=== PATIENT | male | born 1995 | race Caucasian/White ===

== ENCOUNTER → 2021-07-26 16:27 | Outpatient (BNVA) | payer OTHER, SELFPAY | PROVIDERS: Family Provider Family Medicine; PCP Family Medicine; Visit Provider Nurse Practitioner Family | DX: Z20.822 Contact with and (suspected) exposure to COVID-19 (principal) | CPT/HCPCS: 87635 ==

== ENCOUNTER → 2021-10-19 12:31 | Outpatient (BNVA) | payer OTHER, SELFPAY | PROVIDERS: Family Provider Family Medicine; PCP Family Medicine; Visit Provider Nurse Practitioner Family | DX: Z20.822 Contact with and (suspected) exposure to COVID-19 (principal) | CPT/HCPCS: 87635 ==

== ENCOUNTER 2022-01-20 10:23 | Emergency (ER) | payer OTHER, SELFPAY ==
[2022-01-20 10:54] VITALS: BP 111/45; PULSE 48; RESP 20; O2SAT 100; BMI 19.8
--- NOTE | 2022-01-20 11:00 | W.ED.BACK ---
HPI - Back Pain/Injury General: Chief Complaint: Back Pain/Injury Stated Complaint: abd pain Time Seen by Provider: 01/20/22 11:00 History of Present Illness: Mr. Michael is a 26-year-old gentleman without significant past medical history presents to the emergency department due to severe flank pain. He reports being at his baseline health the past few days and had sudden onset of symptoms while he was stretching in bed this morning. He endorses feeling a pop end and having right flank pain with radiation to his stomach. Intensity symptoms is severe. Sharp cramping quality. Radiates to abdomen. No testicular pain. Patient has difficulty staying still. Denies similar episodes in the past. No other specific changes in health, exacerbating, or alleviating factors identified. Onset (ago): minute(s) Severity: severe Similar Symptoms Previously: No Location: right flank and right lower back Radiation: abdomen and groin Relieving factors: none Review of Systems General: Reports: 10 or more systems reviewed and unremarkable except in HPI and below PFSH ED PFSH: Medical History No significant past medical history Surgical History No significant past surgical history Physical Exam Const: COMMON NORMALS: alert GENERAL APPEARANCE: cooperative, well developed and in distress (pain) HENMT: COMMON NORMALS: normocephalic and atraumatic HEAD & SCALP: normocephalic and atraumatic Eye: COMMON NORMALS: conjunctivae normal CONJUNCTIVA: Yes conjunctivae normal SCLERA: sclerae normal Neck/C-Spine: COMMON NORMALS: supple GENERAL: Yes trachea midline Resp: COMMON NORMALS: normal respiratory effort EFFORT & INSPECTION: Yes able to speak in complete sentences Cardio: COMMON NORMALS: regular rate and regular rhythm RATE: regular rate RHYTHM: regular rhythm GI: COMMON NORMALS: Soft to palpation PALPATION: Yes Soft to palpation, Yes Tenderness to palpation present (GI), No Guarding due to palpation present (GI) and No Rigid due to palpation PERCUSSION: normal to percussion Extremity: GENERAL: Yes normal exam except as noted and No edema Neuro: COMMON NORMALS: moves all extremities SENSORIUM/ORIENTATION: Yes alert and No Orientation impaired Psych: COMMON NORMALS: mental status grossly normal and Normal thought process present THOUGHT PROCESS: Normal thought process present Course ED course: - Patient was seen and evaluated by me at bedside - Patient placed on cardiac monitors, IV access obtained - Initial evaluation notable for exam as above, distress due to pain - Labs personally interpreted by me. EKG showing sinus bradycardia with no STEMI. Bradycardia likely due to vagal pain response. -Symptom treatment ordered - Labs notable for no acute hematologic adenopathy, no acute metabolic abnormality. Urinalysis today significant of time to obtain however not concerning for urinary tract infection given negative nitrites and no bacteria identified. Mild dysuria present. - Imaging notable for UVJ stone 3 mm approximately - Upon serial reexamination after treatment the patient was improved after treatment - Based on patient history, evaluation, and testing as interpreted the most likely cause of the patient's condition is ureteral lithiasis. Given location and size as well as improvement in pain with symptom treatment and no evidence of infected kidney stone patient can reasonably be treated in the outpatient environment With strict return precautions given. - The results of ED evaluation were discussed with the patient including prescriptions and/or symptomatic cares (if applicable) including appropriate and responsible use, followup plan, and return precautions. The patient verbalized understanding and felt safe for discharge. - Patient discharged in satisfactory condition. Note: Click bubbles or prepopulated oconnell in note writing are used for assistance with data collection and billing and are inherently more limited than narrative and other text portions of this note. Please use narrative for additional clinical history and defer to narrative/free test for any case of contradictory information. If information appears in only free text or click bubble it should be considered present or absent as reported. Please contact note senior technical writer for clarifications of clinical information or contradictory information. MDM is a brief summary, contradictory or erroneous seeming information should be clarified and full note should be reviewed. Vital Signs: Vital signs: Vital Signs Pulse Rate 73 01/20/22 17:40 Respiratory Rate 18 01/20/22 17:40 Blood Pressure 116/78 01/20/22 17:40 Pulse Oximetry 99 01/20/22 17:40 MDM - Back Pain/Injury Medical Decision Making 26-year-old male presenting with severe back pain found to have 3 mm UVJ ureterolithiasis. Improved with symptom treatment. Satisfactory for outpatient management. Medical Records I reviewed the patient's medical records. Labs I reviewed the patient's lab results. : 01/20/22 11:05 01/20/22 11:05 Radiology Impressions Abdomen/Pelvis CT 01/20/22 11:49 IMPRESSION: 1. Mild RIGHT hydroureteronephrosis secondary to a 3 mm calcification at the UV junction. 2. Additional bilateral nonobstructing renal calculi. 3. Normal appendix. Laboratory Results WBC 8.4 10^3/uL (4.0-10.0) 01/20/22 11:05 RBC 5.25 10^6/uL (4.1-5.3) 01/20/22 11:05 Hgb 15.8 g/dL (11.7-16.6) 01/20/22 11:05 Hct 46.5 % (42.0-52.0) 01/20/22 11:05 MCV 88.6 fl (80-94) 01/20/22 11:05 MCH 30.1 pg (28.0-34.0) 01/20/22 11:05 MCHC 34.0 g/dL (30.0-36.0) 01/20/22 11:05 RDW 12.4 % (12.1-15.1) 01/20/22 11:05 Plt Count 247 10^3/cmm (130-400) 01/20/22 11:05 MPV 10.0 fL (7.4-10.4) 01/20/22 11:05 Neut % (Auto) 51.0 % 01/20/22 11:05 Lymph % (Auto) 39.4 % 01/20/22 11:05 [place] % (Auto) 6.7 % 01/20/22 11:05 Eos % (Auto) 2.2 % 01/20/22 11:05 Baso % (Auto) 0.5 % 01/20/22 11:05 Neut # (Auto) 4.27 10^3/uL (1.8-7.7) 01/20/22 11:05 Lymph # (Auto) 3.3 10^3/uL (0.8-4.8) 01/20/22 11:05 [place] # (Auto) 0.6 10^3/uL (0.2-0.9) 01/20/22 11:05 Eos # (Auto) 0.2 10^3/uL (0.0-0.8) 01/20/22 11:05 Baso # (Auto) 0.0 10^3/uL (0.0-0.1) 01/20/22 11:05 Nucleated RBC % (auto) 0 % 01/20/22 11:05 Nucleated RBCs # 0.0 /100WBC 01/20/22 11:05 Sodium 137 mmol/L (136-145) 01/20/22 11:05 Potassium 3.8 mmol/L (3.5-5.1) 01/20/22 11:05 Chloride 101 mmol/L (98-107) 01/20/22 11:05 Carbon Dioxide 26 mmol/L (22-29) 01/20/22 11:05 Anion Gap 13.8 (5-19) 01/20/22 11:05 BUN 13 mg/dL (6-20) 01/20/22 11:05 Creatinine 0.9 mg/dL (0.7-1.2) 01/20/22 11:05 GFR Calculation 100.5 mL/min (90-130) 01/20/22 11:05 Glucose 120 mg/dL (65-115) H 01/20/22 11:05 Calculated Osmolality 285 mOsm/kg (285-295) 01/20/22 11:05 Calcium 9.5 mg/dL (8.5-10.5) 01/20/22 11:05 Total Bilirubin 0.8 mg/dL (0.15-1.2) 01/20/22 11:05 AST 15 U/L (0-40) 01/20/22 11:05 ALT 13 U/L (0-41) 01/20/22 11:05 Alkaline Phosphatase 85 IU/L (40-130) 01/20/22 11:05 Total Protein 8.3 g/dL (6.6-8.7) 01/20/22 11:05 Albumin 5.2 g/dL (3.5-5.2) 01/20/22 11:05 Globulin 3.1 g/dL (1.3-4.6) 01/20/22 11:05 Lipase 15 U/L (13-60) 01/20/22 11:05 Urine Color Yellow (Yellow) 01/20/22 16:30 Urine Appearance Hazy (CLEAR) A 01/20/22 16:30 Urine pH 5 (5-7) 01/20/22 16:30 Ur Specific [place] 1.030 (1.005-1.030) 01/20/22 16:30 Urine Protein Neg (Negative) 01/20/22 16:30 Urine Glucose (UA) Norm (Normal) 01/20/22 16:30 Urine Ketones 1+ (Negative) H 01/20/22 16:30 Urine Blood 3+ (Negative) H 01/20/22 16:30 Urine Nitrate Negative (Negative) 01/20/22 16:30 Urine Bilirubin Neg (Negative) 01/20/22 16:30 Urine Urobilinogen Norm mg/dL (Negative) 01/20/22 16:30 Ur Leukocyte Esterase Negative (Negative) 01/20/22 16:30 Urine RBC 10-15 /hpf (0-2) H 01/20/22 16:30 Urine WBC 10-15 /hpf (0-5) H 01/20/22 16:30 Ur Squamous Epith Cells 0-4 /hpf (0-5) H 01/20/22 16:30 Amorphous Sediment 2+ /hpf 01/20/22 16:30 Urine Bacteria None /hpf (NONE) 01/20/22 16:30 Hyaline Casts 0-4 /lpf H 01/20/22 16:30 Fine Granular Casts 0-4 /lpf H 01/20/22 16:30 Coarse Granular Casts 0-4 /lpf H 01/20/22 16:30 RBC Casts None /lpf 01/20/22 16:30 Other Casts N /lpf 01/20/22 16:30 Urine Mucus 1+ /hpf 01/20/22 16:30 Urine Sperm 1+ /hpf 01/20/22 16:30 Discharge Plan Discharge Patient Disposition: Home Clinical Impression: Kidney stone Condition: Stable Prescriptions: New ondansetron 4 mg tablet,disintegrating 4 mg PO Q8H PRN (Reason: nausea and vomiting) Qty: 15 0RF oxycodone 5 mg tablet 5 mg PO Q4H PRN (Reason: pain) Qty: 10 0RF Flomax 0.4 mg capsule 0.4 mg PO DAILY Qty: 14 0RF Discharge Orders: Discharge ED (Routine); Ordered 01/20/22 Ordered By: Jonathan Reed Discharge Diet: Usual diet Discharge Activity: Increase activity as tolerated Patient Instructions: Kidney Stones (ED), How to Strain Your Urine (ED), Opioid Safety Activity Restrictions/Additional Instructions: Thank you for visiting the emergency department. You were seen and evaluated for back and side pain. You are found to have a kidney stone measuring 3 mm in the ureter at the junction with the bladder. This, given location and size, will most likely pass on its own. You will be sent home with prescription for pain medication, nausea medication, and a medication to help with passage of the stone. Additionally, please strain your urine. I would expect improvement in symptoms in the next few days however if symptoms continue please follow-up with your primary care provider for reassessment of stone position. You may use Tylenol and ibuprofen in addition to the prescription medications. Please do not exceed the daily recommended dosage and please ensure that you are staying hydrated. Opiates can cause sedation, do not combine with other sedating medications or substances, do not drive or operate machinery while under the influence of medication, do not otherwise perform tasks that would be dangerous with potential impairment. Other common side effect includes constipation, you may use [id number] stool softeners. Please return to the emergency department for uncontrolled symptoms, symptoms of urinary tract infection, or anything else that you are concerned about a feel needs emergency department evaluation. Coding Level of Care Code ED Publications Sales Representative for Sathya Quiroz Exam Comprehensive
--- NOTE | 2022-01-20 11:20 | ECG_ITS ---
[facility] Test Date: 2022-01-20 Pat Name: Severiano Michael Department: Room: Gender: Male Loss Prevention Coordinator: : 1995 Requested By: Jonathan Reed Order Number: [id number] [place] MD: Can Cheek M.D. Measurements Intervals [place] Rate: 45 P: 55 WA: 97 QRS: 83 QRSD: 101 T: 67 QT: 415 QTc: 362 Interpretive Statements SINUS BRADYCARDIA WITH SHORT WA INTERVAL POSSIBLE RIGHT VENTRICULAR CONDUCTION DELAY [RSR (QR) IN V1/V2] POSSIBLE LEFT VENTRICULAR HYPERTROPHY [VOLTAGE CRITERIA PLUS LAE OR QRS WIDENING] MINIMAL ST DEPRESSION [0.025+ mV ST DEPRESSION] No previous ECG available for comparison Electronically Signed On 01-20-2022 20:42:09 CDT by Can Cheek M.D. [email or web address]
[2022-01-20 11:21] LABS: Basophils % 0.5 %; Eosinophils # 0.2 10^3/uL (0.0-0.8); Eosinophils % 2.2 %; Hematocrit 46.5 % (42.0-52.0); Hemoglobin 15.8 g/dL (11.7-16.6); Lymphocytes # 3.3 10^3/uL (0.8-4.8); Lymphocytes % 39.4 %; Mean Corpuscular Hemoglobin 30.1 pg (28.0-34.0); Mean Corpuscular Volume 88.6 fl (80-94); Monocytes # 0.6 10^3/uL (0.2-0.9); Monocytes % 6.7 %; Neutrophils # 4.27 10^3/uL (1.8-7.7); Nucleated Red Blood Cells % 0 %; Platelet Count 247 10^3/cmm (130-400); Red Blood Count 5.25 10^6/uL (4.1-5.3); Red Cell Distribution Width 12.4 % (12.1-15.1); White Blood Count 8.4 10^3/uL (4.0-10.0)
[2022-01-20 11:29] VITALS: RESP 12; O2SAT 94
[2022-01-20] MEDS: fentaNYL 50 mcg/mL INJ 2mL IVP (11:29)
[2022-01-20] MEDS: ondansetron 2 mg/ML SDV 2 mL 4 MG IVP (11:29)
[2022-01-20] MEDS: lactated ringers 1,000 ML 999 ML IV (11:30)
[2022-01-20 11:48] LABS: Alanine Aminotransferase 13 U/L (0-41); Albumin Level 5.2 g/dL (3.5-5.2); Alkaline Phosphatase 85 IU/L (40-130); Anion Gap 13.8 (5-19); Aspartate Amino Transferase 15 U/L (0-40); Blood Urea Nitrogen 13 mg/dL (6-20); Calcium 9.5 mg/dL (8.5-10.5); Carbon Dioxide 26 mmol/L (22-29); Chloride 101 mmol/L (98-107); Globulin 3.1 g/dL (1.3-4.6); Glomerular Filtration Rate 100.5 mL/min (90-130); Glucose 120 mg/dL (65-115); Lipase 15 U/L (13-60); Osmolality Calculated 285 mOsm/kg (285-295); Potassium 3.8 mmol/L (3.5-5.1); Sodium 137 mmol/L (136-145); Total Bilirubin 0.8 mg/dL (0.15-1.2); Total Protein 8.3 g/dL (6.6-8.7)
--- NOTE | 2022-01-20 11:49 | CT_ITS ---
WS: [id number] CT ABDOMEN AND PELVIS NONCONTRAST HISTORY: r flank pain, ? stone TECHNIQUE: Imaging performed through the abdomen and pelvis. Coronal and sagittal reformats are submi tted. All CT scans at [facility] use at least one of these dose optimization techniques: auto mated exposure control; mA and/or kV adjustment per patient size (includes targeted exams where dose is matched to clinical indication); or iterative reconstruction. DLP: 665.38 mGy.cm COMPARISON: 02/28/2016 Lower thorax: Lung bases are clear. Visualized heart is normal. No hiatal hernia. Liver: Normal size liver. No mass or bile duct dilatation. Gallbladder: Normal gallbladder. Pancreas: Normal size and attenuation. Normal pancreatic duct. No pancreatitis or mass. Spleen: Normal. Adrenal glands: Normal. No mass. Right kidney: RIGHT kidney is enlarged and edematous with mild perinephric stranding. There is very m inimal dilatation of the renal pelvis and mild inflammatory changes involving the pelvis and proximal ureter. 3 mm calcification at the UV junction. There are additional very small calcifications in the renal pelvis not causing obstruction. Left kidney: Normal size kidney with several small nonobstructing calcifications in the renal pelvis. The largest calcification measures 4 mm. Normal size ureter. Aorta: Normal abdominal aorta, no aneurysm or atherosclerosis. No free fluid, intraperitoneal air or significant lymphadenopathy. GI tract: Normal appendix. No GI tract obstruction or diverticulosis. Abdominal wall: Negative. No hernia. Pelvis: Minimally distended urinary bladder. No free fluid or adenopathy in the pelvis. Osseous structures: Unremarkable. CT/CT kidney stone [id number] IMPRESSION: 1. Mild RIGHT hydroureteronephrosis secondary to a 3 mm calcification at the U V junction. 2. Additional bilateral nonobstructing renal calculi. 3. Normal appendix.
[2022-01-20 11:50] VITALS: RESP 12; O2SAT 99
[2022-01-20] MEDS: morphine 4 mg/mL SDV 1 mL IVP (11:50)
[2022-01-20 12:40] VITALS: RESP 12; O2SAT 99
[2022-01-20] MEDS: HYDROmorphone 1 mg/mL INJ 1 mL 0.5 MG IVP (12:40)
[2022-01-20] MEDS: ketorolac 30 mg/mL INJ 15 MG IVP (14:00)
[2022-01-20 14:31] VITALS: BP 128/78; PULSE 47; RESP 12; O2SAT 99
[2022-01-20] MEDS: sodium chloride 0.9% 1,000 ML 999 ML IV (14:53)
[2022-01-20] MEDS: tamsulosin 0.4 mg Capsule PO (14:53)
[2022-01-20] MEDS: lidocaine 2% Urojet 20 mL TOPICAL (16:31)
[2022-01-20 16:45] LABS: Bilirubin Urine Neg (Negative); Blood Urine 3+ (Negative); Glucose Urine UA Norm (Normal); Ketones Urine 1+ (Negative); Nitrate Urine Negative (Negative); Protein Urine Neg (Negative); Urine Appearance Hazy (CLEAR); Urine Color Yellow (Yellow); pH Urine 5 (5-7)
[2022-01-20 16:46] LABS: Add Urine Microscopic? YES; Leukocyte Esterase Urine Negative (Negative); Urobilinogen Urine Norm (Negative)
[2022-01-20 17:10] LABS: Squamous Epithelial Cell Urine 0-4 /hpf (0-5)
[2022-01-20 17:11] LABS: Amorphous Sediment Urine 2+ /hpf; Coarse Granular Casts Urine 0-4 /lpf; Fine Granular Casts Urine 0-4 /lpf; Hyaline Casts Urine 0-4 /lpf; Mucus Urine 1+ /hpf; Other Casts Urine N /lpf
[2022-01-20 17:12] LABS: Add Urine Culture? Yes; Sperm Urine 1+ /hpf
[2022-01-20 17:40] VITALS: BP 116/78; PULSE 73; RESP 18; O2SAT 99
== END 2022-01-20 17:43 | disposition home or self-care (01) ==
PROVIDERS: Physician Assistant; Emergency Provider Emergency Medicine
DX: N20.0 Calculus of kidney (principal)
CPT/HCPCS: 74176; 80053; 81001; 83690; 85025; 87086; 93005; 96361; 96374; 96375; 99284; J1170; J1885; J2270; J2405; J3010; J7030

== ENCOUNTER 2022-05-31 04:30 | Emergency (ER) | payer OTHER, SELFPAY ==
[2022-05-31 04:46] VITALS: BP 132/84; PULSE 68; RESP 16; TEMP 37.2; O2SAT 96; BMI 19.8
--- NOTE | 2022-05-31 04:51 | W.ED.BACK ---
HPI - Back Pain/Injury General: Chief Complaint: Back Pain/Injury Stated Complaint: Lower Back Pain Time Seen by Provider: 05/31/22 04:51 History of Present Illness: 26-year-old male presents with left lower back pain. He reports it started a couple days ago got worse. He had some nausea and vomiting. The pain comes and goes. Patient has had a prior kidney stone. Patient reports that he took a leftover oxycodone to help with the pain. He is not currently nauseated. No reports of fever chills or dysuria. He has not noticed any blood in his urine. Associated symptoms: Reports abdominal pain and nausea; Deny chills, dysuria, fever(s) or vomiting Review of Systems Const: Denies: fever(s) or chills Eyes: Denies: change in vision or blurry vision Card: Denies: chest pain or palpitations Resp: Denies: dyspnea or productive cough GI: Reports: abdominal pain and nausea; Denies: vomiting : Reports: flank pain; Denies: dysuria or urinary frequency Musc: Denies: neck pain or back pain Skin/Breast: Denies: rash or pruritus Neuro: Denies: headache(s) or dizziness Psych: Denies: anxiety or depression PFSH ED PFSH: Medical History No significant past medical history Surgical History No significant past surgical history Physical Exam Const: COMMON NORMALS: average body habitus and patient oriented x3 HENMT: COMMON NORMALS: hearing grossly normal bilaterally and moist oral mucous membranes Resp: COMMON NORMALS: normal respiratory effort, No use of accessory muscles and clear to auscultation bilaterally AUSCULTATION: clear to auscultation bilaterally Cardio: COMMON NORMALS: regular rate and regular rhythm RATE: regular rate RHYTHM: regular rhythm GI: COMMON NORMALS: Soft to palpation PALPATION: Yes Soft to palpation and Yes Tenderness to palpation present (GI) (Mild suprapubic) : BLADDER/KIDNEY EXAM: Yes CVA tenderness on the left (Mild) Back/Pelvis: GENERAL BACK: Yes CVA tenderness Extremity: COMMON NORMALS: normal to inspection, full ROM and capillary refill normal Neuro: COMMON NORMALS: patient oriented x3, moves all extremities and no focal motor deficits Psych: COMMON NORMALS: mental status grossly normal, cooperative and normal affect Skin: COMMON NORMALS: no rashes or lesions noted GENERAL SKIN EXAM: no rashes or lesions noted Course Vital Signs: Vital signs: Vital Signs Temperature 98.9 F 05/31/22 04:46 Pulse Rate 61 05/31/22 07:14 Respiratory Rate 16 05/31/22 07:14 Blood Pressure 114/61 05/31/22 07:14 Pulse Oximetry 96 05/31/22 07:14 Oxygen Delivery Me thod 05/31/22 06:05 MDM - Back Pain/Injury Medical Decision Making Patient with left distal ureter stone. We will start him on pain medication, nausea medication, Flomax and have him follow-up with urology. Patient was stable and discharged home Labs : 05/31/22 04:49 05/31/22 04:49 Radiology Impressions Abdomen/Pelvis CT 05/31/22 04:58 IMPRESSION: 1. [id number] left hydronephrosis and ureterectasis with a left ureterovesicular junction 2 x 3 x 2 mm calculus (series 4, image 188 and series 6, image 62)-at the level of the hip joint. 2. Tiny bilateral intrarenal calculi. No right hydronephrosis or ureterectasis. 3. Nonspecific unchanged mild splenomegaly. Laboratory Results WBC 11.1 10^3/uL (4.0-10.0) H 05/31/22 04:49 RBC 4.79 10^6/uL (4.1-5.3) 05/31/22 04:49 Hgb 14.5 g/dL (11.7-16.6) 05/31/22 04:49 Hct 42.3 % (42.0-52.0) 05/31/22 04:49 MCV 88.3 fl (80-94) 05/31/22 04:49 MCH 30.3 pg (28.0-34.0) 05/31/22 04:49 MCHC 34.3 g/dL (30.0-36.0) 05/31/22 04:49 RDW 12.4 % (12.1-15.1) 05/31/22 04:49 Plt Count 200 10^3/cmm (130-400) 05/31/22 04:49 MPV 10.0 fL (7.4-10.4) 05/31/22 04:49 Neut % (Auto) 70.1 % 05/31/22 04:49 Lymph % (Auto) 20.1 % 05/31/22 04:49 [place] % (Auto) 8.4 % 05/31/22 04:49 Eos % (Auto) 0.8 % 05/31/22 04:49 Baso % (Auto) 0.2 % 05/31/22 04:49 Neut # (Auto) 7.80 10^3/uL (1.8-7.7) H 05/31/22 04:49 Lymph # (Auto) 2.2 10^3/uL (0.8-4.8) 05/31/22 04:49 [place] # (Auto) 0.9 10^3/uL (0.2-0.9) 05/31/22 04:49 Eos # (Auto) 0.1 10^3/uL (0.0-0.8) 05/31/22 04:49 Baso # (Auto) 0.0 10^3/uL (0.0-0.1) 05/31/22 04:49 Nucleated RBC % (auto) 0 % 05/31/22 04:49 Nucleated RBCs # 0.0 /100WBC 05/31/22 04:49 Sodium 137 mmol/L (136-145) 05/31/22 04:49 Potassium 4.0 mmol/L (3.5-5.1) 05/31/22 04:49 Chloride 99 mmol/L (98-107) 05/31/22 04:49 Carbon Dioxide 26 mmol/L (22-29) 05/31/22 04:49 Anion Gap 16.0 (5-19) 05/31/22 04:49 BUN 10 mg/dL (6-20) 05/31/22 04:49 Creatinine 1.5 mg/dL (0.7-1.2) H 05/31/22 04:49 GFR Calculation 55.7 mL/min (90-130) L 05/31/22 04:49 Glucose 104 mg/dL (65-115) 05/31/22 04:49 Calculated Osmolality 283 mOsm/kg (285-295) L 05/31/22 04:49 Calcium 9.3 mg/dL (8.5-10.5) 05/31/22 04:49 Total Bilirubin 1.0 mg/dL (0.15-1.2) 05/31/22 04:49 AST 14 U/L (0-40) 05/31/22 04:49 ALT 12 U/L (0-41) 05/31/22 04:49 Alkaline Phosphatase 82 U/L (40-130) 05/31/22 04:49 Total Protein 7.9 g/dL (6.6-8.7) 05/31/22 04:49 Albumin 4.6 g/dL (3.5-5.2) 05/31/22 04:49 Globulin 3.3 g/dL (1.3-4.6) 05/31/22 04:49 Urine Color Yellow (Yellow) 05/31/22 06:13 Urine Appearance Clear (CLEAR) 05/31/22 06:13 Urine pH 6.5 (5-7) 05/31/22 06:13 Ur Specific [place] 1.010 (1.005-1.030) 05/31/22 06:13 Urine Protein Neg (Negative) 05/31/22 06:13 Urine Glucose (UA) Norm (Normal) 05/31/22 06:13 Urine Ketones Negative (Negative) 05/31/22 06:13 Urine Blood Neg (Negative) 05/31/22 06:13 Urine Nitrate Negative (Negative) 05/31/22 06:13 Urine Bilirubin Neg (Negative) 05/31/22 06:13 Urine Urobilinogen Norm mg/dL (Negative) 05/31/22 06:13 Ur Leukocyte Esterase Negative (Negative) 05/31/22 06:13 Discharge Plan Discharge Patient Disposition: Home Clinical Impression: Calculus of distal left ureter Condition: Stable Prescriptions: New Flomax 0.4 mg capsule 0.4 mg PO DAILY Qty: 14 0RF hydrocodone-acetaminophen 5-325 mg tablet 1 tab PO Q8H PRN (Reason: pain) Qty: 10 0RF ondansetron 4 mg tablet,disintegrating 4 mg PO Q6H PRN (Reason: nausea and vomiting) Qty: 20 0RF No Action ondansetron 4 mg tablet,disintegrating 4 mg PO Q8H PRN (Reason: nausea and vomiting) Qty: 15 0RF oxycodone 5 mg tablet 5 mg PO Q4H PRN (Reason: pain) Qty: 10 0RF Flomax 0.4 mg capsule 0.4 mg PO DAILY Qty: 14 0RF Discharge Orders: Discharge ED (Routine); Ordered 05/31/22 Ordered By: Rogelio Woody Discharge Diet: Usual diet Discharge Activity: Resume usual activity Patient Instructions: Kidney Stones (ED), Opioid Safety, Pain Management Activity Restrictions/Additional Instructions: Follow-up with your primary care provider as needed if symptoms not improve over the next 3 to 4 days Coding Level of Care Code ED Mandarin Chinese Teacher for Chg Fwd Exam Comprehensive
--- NOTE | 2022-05-31 04:58 | CTR_ITS ---
PROCEDURE INFORMATION: Exam: CT Abdomen And Pelvis Without Contrast Exam date and time: 05/31/2022 5:08 AM Age: 26 years old Clinical indication: Abdominal pain; Patient HX: C/O left flank pain with nausea. ; Additional info: Flank pain, HX stones TECHNIQUE: Imaging protocol: Computed tomography of the abdomen and pelvis without contrast. Radiation optimization: All CT scans at this facility use at least one of these dose optimization techniques: automated exposure control; mA and/or kV adjustment per patient size (includes targeted exams where dose is matched to clinical indication); or iterative reconstruction. COMPARISON: CT kidney stone [id number] 03/07/2016 11:46 PM RADIATION DOSE METRICS: Total DLP (mGy-cm): 390.97 FINDINGS: Lungs: The visualized portions of the lung bases are normal. Liver: Appears unremarkable on the non-contrast CT. Gallbladder and bile ducts: No calcified stones. No ductal dilation. Pancreas: Appears unremarkable on the non-contrast CT. No ductal dilation. Spleen: There is unchanged mild splenomegaly noted with the spleen measuring 13.7 cm in length. The parenchyma appears unremarkable on noncontrast imaging. Adrenal glands: Normal. No mass. Kidneys and ureters: There is xwaa-[id number] left hydronephrosis and ureterectasis with a left ureterovesicular junction 2 x 3 x 2 mm calculus (series 4, image 188 and series 6, image 62)-at the level of the hip joint. Multiple bilateral kidney mid zone and lower pole and left kidney upper pole 1 mm calculi are seen (greater than 6). No contour deforming renal masses on the noncontrast CT. No right hydronephrosis, ureterectasis or ureteral calculi. Stomach and bowel: The non-contrast opacified stomach is not well distended with relative gastric fold prominence. Assessment is limited. The noncontrast opacified small bowel loops appear unremarkable. Some fluid is seen in the ascending colon and transverse colon. The remainder of the colon appears unremarkable. The lack of orally administered contrast material limits assessment. Appendix: No evidence of appendicitis. Intraperitoneal space: No free air. No significant fluid collection. Vasculature: No abdominal aortic aneurysm. Lymph nodes: No enlarged lymph nodes. Urinary bladder: No bladder debris. No wall thickening. Reproductive: Unremarkable as visualized. Bones/joints: No acute osseous abnormalities seen. Soft tissues: Tiny umbilical hernia is seen, containing peritoneal fat. CT/CT kidney stone [id number] IMPRESSION: 1. Awfi-wj-lpzpoutu left hydronephrosis and ureterectasis with a left ureterovesicular junction 2 x 3 x 2 mm calculus (series 4, image 188 and series 6, image 62)-at the level of the hip joint. 2. Tiny bilateral intrarenal calculi. No right hydronephrosis or ureterectasis. 3. Nonspecific unchanged mild splenomegaly.
[2022-05-31] MEDS: sodium chloride 0.9% 1,000 ML 999 ML IV (05:03)
[2022-05-31] MEDS: ketorolac 30 mg/mL INJ 15 MG IVP (05:03)
[2022-05-31 05:05] LABS: Basophils % 0.2 %; Eosinophils # 0.1 10^3/uL (0.0-0.8); Eosinophils % 0.8 %; Hematocrit 42.3 % (42.0-52.0); Hemoglobin 14.5 g/dL (11.7-16.6); Lymphocytes # 2.2 10^3/uL (0.8-4.8); Lymphocytes % 20.1 %; Mean Corpuscular HGB Conc 34.3 g/dL (30.0-36.0); Mean Corpuscular Hemoglobin 30.3 pg (28.0-34.0); Mean Corpuscular Volume 88.3 fl (80-94); Monocytes # 0.9 10^3/uL (0.2-0.9); Monocytes % 8.4 %; Neutrophils % 70.1 %; Nucleated Red Blood Cells % 0 %; Platelet Count 200 10^3/cmm (130-400); Red Blood Count 4.79 10^6/uL (4.1-5.3); Red Cell Distribution Width 12.4 % (12.1-15.1); White Blood Count 11.1 10^3/uL (4.0-10.0)
[2022-05-31 05:19] LABS: Alanine Aminotransferase 12 U/L (0-41); Albumin Level 4.6 g/dL (3.5-5.2); Alkaline Phosphatase 82 U/L (40-130); Aspartate Amino Transferase 14 U/L (0-40); Blood Urea Nitrogen 10 mg/dL (6-20); Calcium 9.3 mg/dL (8.5-10.5); Carbon Dioxide 26 mmol/L (22-29); Chloride 99 mmol/L (98-107); Globulin 3.3 g/dL (1.3-4.6); Glomerular Filtration Rate 55.7 mL/min (90-130); Glucose 104 mg/dL (65-115); Osmolality Calculated 283 mOsm/kg (285-295); Sodium 137 mmol/L (136-145); Total Protein 7.9 g/dL (6.6-8.7)
[2022-05-31 05:29] VITALS: BP 126/80; PULSE 70; RESP 16; O2SAT 96
[2022-05-31 06:05] VITALS: BP 120/71; PULSE 79; RESP 16; O2SAT 96
[2022-05-31 06:18] LABS: Add Urine Microscopic? NO; Charge for UA Resulting for Rev
[2022-05-31 06:31] LABS: Urine Appearance Clear (CLEAR); Urine Color Yellow (Yellow); pH Urine 6.5 (5-7)
[2022-05-31 06:32] LABS: Bilirubin Urine Neg (Negative); Blood Urine Neg (Negative); Glucose Urine UA Norm (Normal); Ketones Urine Negative (Negative); Leukocyte Esterase Urine Negative (Negative); Nitrate Urine Negative (Negative); Protein Urine Neg (Negative); Urobilinogen Urine Norm (Negative)
[2022-05-31 07:14] VITALS: BP 114/61; PULSE 61; RESP 16; O2SAT 96
== END 2022-05-31 07:16 | disposition home or self-care (01) ==
PROVIDERS: Emergency Provider Student in an Organized Health Care Education/Training Program
DX: N20.1 Calculus of ureter (principal)
CPT/HCPCS: 74176; 80053; 81003; 85025; 96361; 96374; 99285; J1885; J7030